=== PATIENT | female | born 1955 | race Two or more races ===

== ENCOUNTER → 2017-11-03 | Emergency (ER) | payer OTHER ==
[~2017-11-03] VITALS: Ht 157.5 cm; Wt 73.5 kg
[~2017-11-03] MED LIST: AMOX1TAB12 PO; COZAAR100 MG; NORTUSS-EX LIQ118 ML PO; ZYRTEC10 MG PO
== END | disposition left against medical advice (07) ==
LOC: ER 16:41
DX: Z53.20 Procedure and treatment not carried out because of patient's decision for unspecified reasons (principal)

== ENCOUNTER 2018-03-22 11:33 | Emergency (ER) | payer OTHER ==
[~2018-03-22] VITALS: Ht 154.9 cm; Wt 72.6 kg
== END 2018-03-22 13:36 | disposition home or self-care (01) ==
LOC: ER 11:33
DX: J06.9 Acute upper respiratory infection, unspecified (principal)